=== PATIENT | female | born 1935 | race Hispanic/Latino ===

== ENCOUNTER → 2020-05-25 | Outpatient (CLI) | payer MEDICARE ==
[2020-05-25 17:10] LABS: INR 2.93 (0.87-1.13)
== END | disposition home or self-care (01) ==
LOC: LAB 07:05
PROVIDERS: ATTEND Family Medicine
DX: I82.419 Acute embolism and thrombosis of unspecified femoral vein (principal)
CPT/HCPCS: 36415; 85610